=== PATIENT | female | born 1940 | race Caucasian/White ===

== ENCOUNTER → 2020-04-24 | Outpatient (CLI) | payer OTHER ==
[~2020-04-24] MED LIST: ACCUNEB SO1.25 MG/1 INH; ASTEPRO205.5 MCG/ NS; CALCIUM 600 +1 EAC1 PO; CENTRUM SILVER1 EAC4 PO; DEXILANT60 MG PO; FEMARA2.5 MG PO; FISH OIL 1,001000 M2 PO; LEVOTHYROXIN0.175 MG PO; NASONEX17 GM NASAL; PACERONE 200 M200 MG NG; PROBIOTIC1 EAC1 PO; REMERON15 MG PO; XARELTO20 MG PO
== END ==
LOC: NUC 08:01
PROVIDERS: ATTEND Neuromusculoskeletal Medicine & OMM
DX: M81.0 Age-related osteoporosis without current pathological fracture (principal)

== ENCOUNTER 2021-06-07 13:37 | Inpatient (IN) | payer OTHER ==
[~2021-06-07] VITALS: Ht 162.6 cm; Wt 73.9 kg
[~2021-06-07 13:37] MED LIST changes: -ACCUNEB SO1.25 MG/1 INH
[2021-06-07 14:08] VITALS: BP 98/40
[2021-06-07 15:32] LABS: EOSINOPHILS 1.5 % (0.0-3.0); RDW 17.4 % (10.5-14.5); WBC 4.9 thou/uL (4.0-11.0)
[2021-06-07 15:34] LABS: ABSOLUTE NEUTROPHILS 3.2 thou/uL (1.4-8.2); BASOPHILS 1.2 % (0.0-2.0); LYMPHOCYTES 16.8 % (24.0-44.0); MCH 22.5 pg (26.0-34.0); MCV 72.3 fL (80.0-100.0); MONOCYTES 14.3 % (1.0-8.0); PLATELET COUNT 371 thou/uL (150-400); POLYS 66.2 % (36.0-66.0); RBC 2.34 mil/uL (4.20-5.00)
[2021-06-07 15:47] LABS: HEMATOCRIT 16.9 % (37.0-47.0); HEMOGLOBIN 5.2 gm/dL (12.0-15.0)
[2021-06-07 15:48] LABS: ANION GAP 7 mmol/L (7-16); BUN 15 mg/dL (7-18); CALCIUM 8.1 mg/dL (8.5-10.1); CHLORIDE 102 mmol/L (98-107); CO2 27 mmol/L (21-32); GLUCOSE 106 mg/dL (74-106); SODIUM 136 mmol/L (136-145)
[2021-06-07 15:49] LABS: APTT 24.3 Seconds (24.5-32.8); PROTIME 10.9 Seconds (10.5-12.1)
[2021-06-07 15:53] LABS: ALBUMIN 3.1 g/dL (3.4-5.0); DIRECT BILIRUBIN < 0.1 mg/dL (<0.1-0.2); LIPASE 323 U/L (73-393); SGOT 16 U/L (15-37); SGPT 16 U/L (14-59); TOTAL BILIRUBIN 0.3 mg/dL (0.2-1.0); TOTAL PROTEIN 6.3 g/dL (6.4-8.2)
[2021-06-07 16:58] VITALS: BP 127/51; BP 127/55; BP 132/55; BP 140/73
[2021-06-07] MEDS ORDERED: SYNTHROID75 MC1 PO (17:22)
[2021-06-07] MEDS ORDERED: LIPITOR10 MG PO ×2 (17:22)
[2021-06-07] MEDS ORDERED: XARELTO20 MG PO (17:22)
[2021-06-07] MEDS ORDERED: KAPSPARGO SPRIN25 MG PO (17:23)
[2021-06-07] MEDS ORDERED: PROPAFENONE 22225 M1 PO (17:23)
[2021-06-07] MEDS ORDERED: ADULT ASPIRIN R81 MG PO (17:24)
[2021-06-07 17:50] LABS: % SATURATION 2 % (20-39); IRON 9 ug/dL (50-170); TIBC 429 ug/dL (250-450)
[2021-06-07 18:13] LABS: URINE BILIRUBIN NEGATIVE (Negative); URINE BLOOD NEGATIVE (Negative); URINE CLARITY CLEAR; URINE COLOR YELLOW; URINE GLUCOSE-RANDOM* NEGATIVE (Negative); URINE KETONES NEGATIVE (Negative); URINE LEUKOCYTES-REFLEX TRACE (Negative); URINE NITRITE-REFLEX NEGATIVE (Negative); URINE PROTEIN (DIPSTICK) NEGATIVE (Negative); URINE UROBILINOGEN 0.2 E.U./dl (0.2-1.0)
[2021-06-07 18:18] LABS: FOLIC ACID 18.5 ng/mL (8.6-58.9)
[2021-06-07 19:43] VITALS: BP 123/52; BP 132/55; BP 146/62; BP 150/59
[2021-06-07 20:25] VITALS: BP 133/50
[2021-06-07 21:38] VITALS: BP 150/59
[2021-06-07 22:40] VITALS: BP 145/70
--- NOTE | 2021-06-08 00:15 | NUR ---
PT IS A 80-YEAR-OLD FEMALE ADMITTED FROM HOME VIA ED WITH HGB OF 5.2/GI BLEED.PT IS A/OX4.VSS.PT ARRIVED TO UNIT VIA W/C ACCOMPANIED BY 2 ED STAFF.PROTONIX DRIP AND NS INFUSING AT TIME OF THE TRANSFER.PT RECIEVED 2 UNITS OF PRBCs AT THE ED PER THE STAFF.ORIENTED PT TO RM AND UNIT ACTIVITIES.PT STEADY ON HER FEET BUT DO C/O SOB W/EXERTION W/ACTIVITIES/AMBULATIONS THAT HAS BEEN GOING ON FOR DAYS.ADMISSION ASSESSMENT COMPLETED DOCUMENTED.PT DENIES ANY QUESTIONS OR CONCERNS.PT WILL BE NPO AFTER MIDNOC FOR EGD TOMORROW PER ED STAFF.
[2021-06-08 04:36] LABS: ABSOLUTE NEUTROPHILS 4.2 thou/uL (1.4-8.2); BASOPHILS 0.9 % (0.0-2.0); EOSINOPHILS 1.1 % (0.0-3.0); HEMATOCRIT 23.9 % (37.0-47.0); LYMPHOCYTES 15.8 % (24.0-44.0); MCHC 31.5 g/dL (28.0-37.0); PLATELET COUNT 312 thou/uL (150-400); POLYS 67.2 % (36.0-66.0); RBC 3.27 mil/uL (4.20-5.00); RDW 21.4 % (10.5-14.5); WBC 6.2 thou/uL (4.0-11.0)
[2021-06-08 04:38] LABS: HEMOGLOBIN 7.5 gm/dL (12.0-15.0)
[2021-06-08 04:45] VITALS: BP 148/66
[2021-06-08 04:53] LABS: CALCIUM 7.9 mg/dL (8.5-10.1); CREATININE 0.8 mg/dL (0.6-1.0); POTASSIUM 3.8 mmol/L (3.5-5.1)
[2021-06-08 07:44] VITALS: BP 136/58
--- NOTE | 2021-06-08 08:27 | NUR ---
P.T. EVALUATION TO BE PLACE ON HOLD AT THIS TIME DUE TO DECLINE IN MEDICAL STATUS WITH SUBSEQUENT INTUBATION AFTER P.T. ORDER WAS RECEIVED. REQUEST NEW P.T. ORDER ONCE PT IS HEMODYNAMICALLY STABLE AND ABLE TO PARTICPATE IN P.T. EVALUATION.
[2021-06-08 10:28] LABS: HEMATOCRIT 23.8 % (37.0-47.0); HEMOGLOBIN 7.3 gm/dL (12.0-15.0)
[2021-06-08 11:28] VITALS: BP 148/52
--- NOTE | 2021-06-08 12:44 | EKG ---
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
[2021-06-08 15:31] VITALS: BP 133/54
[2021-06-08 20:15] VITALS: BP 141/54
[2021-06-08 22:00] LABS: HEMATOCRIT 23.7 % (37.0-47.0); HEMOGLOBIN 7.3 gm/dL (12.0-15.0)
[2021-06-09 04:45] VITALS: BP 140/77
--- NOTE | 2021-06-09 08:18 | NUR ---
PT AMBULATING TO BATHROOM INDEPENDENTLY AND IS TOLERATING WELL. DENIES PAIN. RESTING COMFORTABLY. NO NEEDS VOICED. CALL LIGHT WITHIN REACH. FREQUENT OBSERVATION.
[2021-06-09 08:28] VITALS: BP 131/49
[2021-06-09 10:31] LABS: HEMATOCRIT 23.4 % (37.0-47.0); HEMOGLOBIN 7.2 gm/dL (12.0-15.0)
[2021-06-09 11:06] VITALS: BP 123/45
[2021-06-09 14:27] VITALS: BP 116/69; BP 124/51; BP 132/57
--- NOTE | 2021-06-09 19:42 | NUR ---
Pt was A&0X4, pleasant and cooperative throughout shift. VS were stable and pt remianed afebrile throughout shift. Pt Hgb was 7.2 - 1 unit PRBC was transfused. Pt tolerated transfusion which was completed at 1700. Pt is prepping for EGD and Colonoscopy 06/10/21. Pt was change from full liquid to clear liquid diet and will be NPO after midnight - communicated to shift supervisor. Pt is resting in bed. No concerns. Continue to monitor.
[2021-06-09 20:15] VITALS: BP 135/58
[2021-06-09 21:23] LABS: HEMATOCRIT 27.8 % (37.0-47.0); HEMOGLOBIN 8.8 gm/dL (12.0-15.0)
[2021-06-10 04:45] VITALS: BP 140/59
--- NOTE | 2021-06-10 05:48 | NUR ---
PATIENT CONTINUED TO BE IN A FIB WITH A RATE OF 125 TO 138 FOR OVER AN HOUR. CALLED THE NURSE PRACTIONER GAVE A ONE TIME ORDER THIS WAS GIVEN IVP. STRIPS IN CHART OF THIS EPISODE AND THE LAST STRIP TO SHOW RECOVERY AFTER THE IVP OF DELTAZEM WAS GIVEN. PATIENT CONTINUES TO SHOW IMPROVEMENT.
[2021-06-10 07:55] VITALS: BP 142/66
[2021-06-10 11:11] LABS: CALCIUM 7.8 mg/dL (8.5-10.1); CREATININE 0.7 mg/dL (0.6-1.0); POTASSIUM 3.4 mmol/L (3.5-5.1)
[2021-06-10 11:40] VITALS: BP 107/69
[2021-06-10 15:35] VITALS: BP 131/57
--- NOTE | 2021-06-10 17:18 | NUR ---
Pt was A&0x4, VS stable and afebrile throughout shift. Pt had a bout of tachycardia and AFib in the AM. Dr. Walsh said it was okay to proceed with EGD and colonoscopy. Pt returned to unit from procedure at 1600 and continues to be A&0x4 and stable. Pt converted back to SR and HR is now controled. Pt is sitting in chair eating dinner (regualr diet). No current concerns, will continue to monitor.
[2021-06-10 19:05] VITALS: BP 138/57
--- NOTE | 2021-06-11 01:12 | NUR ---
patients cares where assumed at [facility]. patient was assesssed and meds where passed. patient verbalized her gi exam was good and she is looking forward to going home. patient does believe she will go home today. rounds where done. the bed is in a low and locked position
[2021-06-11 06:02] VITALS: BP 151/69
--- NOTE | 2021-06-11 08:00 | EKG ---
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1940 Requested By: Polly Jo Order Number: [id number] MD: Krishna Hutson Measurements Intervals [place] Rate: 122 P: NC: QRS: 47 QRSD: 83 T: 167 QT: 301 QTc: 429 Interpretive Statements Atrial fibrillation Probable LVH with secondary repol abnrm Compared to ECG 06/07/2021 14:01:07 Sinus rhythm no longer present Electronically Signed On 06-11-2021 7:59:53 [employer] by Krishna Hutson [email or web address] <ELECTRONICALLY SIGNED> By: Krishna Hutson MD, [facility] 06/11/21 0759 0847 6 Krishna Hutson MD, FACC /EPI
[2021-06-11 08:05] VITALS: BP 149/65
[2021-06-11 09:40] LABS: HEMOGLOBIN 8.5 gm/dL (12.0-15.0)
--- NOTE | 2021-06-11 10:16 | NUR ---
THIS RN SPOKE WITH DR. ALEJANDRA FROM GI AT 1016 REGARDING DISCHARGE ORDERS FOR THIS PATIENT. HE SAID IT WAS OK TO DISCHARGE AND THAT THE PATIENT SHOULD NOT TAKE XARELTO FOR 5 DAYS.
[2021-06-11] MEDS ORDERED: ACCUNEB SO1.25 MG/1 INH (10:34)
[2021-06-11 10:35] VITALS: BP 149/65
[2021-06-11 10:40] VITALS: BP 149/65
--- NOTE | 2021-06-11 11:10 | 2DMMODE ---
[facility] [place] [address] 2 D/M-MODE ECHOCARDIOGRAM Name: LUCA KEENE Room #: 216-P ADM IN M.R.#: [id number] Admission: 06/07/21 Attend Phys: Polly Jo MD Discharge: Date of : 40 Report #: [id number] THIS REPORT FOR: cc: Sam Chinchilla,Rajiv Emanuel MD [facility] ~ APPROVED REPORT Study performed: 06/11/2021 09:32:31 EXAM: Comprehensive 2D, Doppler, and color-flow Echocardiogram Patient Location: Bedside Room #: 216 Status: routine BSA: 1.79 HR: 76 bpm BP: 149/65 mmHg Rhythm: NSR Other Information Study Quality: Good Indications Atrial Fibrillation Dyspnea Hypertension/HDD 2D Dimensions RVDd: 40.94 mm IVSd: 10.24 (7-11mm) LVOT Diam: 19.09 (18-24mm) LVDd: 42.17 mm PWd: 9.84 (7-11mm) Ascending Ao: 30.46 (22-36mm) LVDs: 30.30 (25-40mm) Left Atrium: 41.86 (27-40mm) Aortic Root: 29.19 mm IVC: 17.00 mm Volumes Left Atrial Volume (Systole) Single Plane 4CH: 85.08 mL Single Plane 2CH: 99.20 mL LA ESV Index: 57.00 mL/m2 Aortic Valve AoV Peak Ankit.: 1.58 m/s AO Peak Gr.: 9.95 mmHg LVOT Max P.01 mmHg [facility] [address] [place] [address] 2 D/M-MODE ECHOCARDIOGRAM Name: LUCA KEENE Room #: 216-P [facility] IN .R.#: [id number] Admission: 06/07/21 Attend Phys: Zacarias Marquez Discharge: Date of : 40 Report #: [id number] LVOT Max V: 1.32 m/s SHAYLA Vmax: 2.40 cm2 Mitral Valve E/A Ratio: 1.1 MV Decel. Time: 246.83 ms MV E Max Ankit.: 1.12 m/s MV A Ankit.: 1.02 m/s MV PHT: 71.58 ms IVRT: 106.11 ms Pulmonary Valve PV Peak Ankit.: 1.04 m/s PV Peak Gr.: 4.31 mmHg Pulmonary Vein P Vein S: 0.55 m/s P Vein A: 0.29 m/s P Vein D: 0.31 m/s P Vein A Dur.: 124.6 msec P Vein S/D Ratio: 1.77 Tricuspid Valve TR Peak Ankit.: 2.52 m/s TR Peak Gr.: 25.43 mmHg PA Pressure: 30.00 mmHg Left Ventricle The left ventricle is normal size. There is normal LV segmental wall motion. There is normal left ventricular wall thickness. The left ventricular systolic function is normal. The left ventricular ejection fraction is within the normal range. LVEF is 55-60%. The left ventricular diastolic function is normal. Right Ventricle The right ventricle is normal size. The right ventricular systolic function is normal. Atria Left atrium is dilated. Right atrium is dilated. Smal mobile structure in the right atrium likely chiari network. Aortic Valve The aortic valve is normal in structure. No aortic regurgitation is present. There is no aortic valvular stenosis. Mitral Valve The mitral valve is normal in structure. Mild mitral regurgitation. No evidence of mitral valve stenosis. [facility] [address] [place] [address] 2 D/M-MODE ECHOCARDIOGRAM Name: LUCA KEENE Room #: 216-P [facility] IN .R.#: [id number] Admission: 06/07/21 Attend Phys: Zacarias Marquez Discharge: Date of : 40 Report #: [id number] Tricuspid Valve The tricuspid valve is normal in structure. There is mild tricuspid regurgitation. Estimated PAP 30 mmHg. There is no pulmonary hypertension. Pulmonic Valve The pulmonary valve is normal in structure. There is no pulmonic valvular regurgitation. Great Vessels The aortic root is normal in size. IVC is normal in size and collapses >50% with inspiration. Pericardium There is no pericardial effusion. <Conclusion> Normal left ventricle size/wall thickness central ejection fraction 60% Normal right ventricle size/function Mild biatrial enlargement Aortic valve mildly calcified, no stenosis Normal mitral valve structure Mild mitral valve insufficiency Mild tricuspid valve insufficiency Pulmonary systolic pressure estimated at 30 mmHg No pericardial effusion Normal aortic root size <ELECTRONICALLY SIGNED> By: Rajiv Walsh MD, FACC 06/11/21 111 09 111 Rajiv Walsh MD, FACC /INF
--- NOTE | 2021-06-11 11:39 | NUR ---
talked with zia genao for cardiology at 0900. she said it was ok to discharge 216 from a cardiology standpoint.
[2021-06-11] MEDS ORDERED: PROTONIX40 M2 PO (12:09)
[2021-06-11] MEDS ORDERED: METOPROLOL SUCC50 MG PO (12:09)
[2021-06-11 12:49] VITALS: BP 149/65
--- NOTE | 2021-06-11 12:59 | NUR ---
TOOK OVER CARE OF THIS PATIENT AT 1200. PT AWAITING D/C ORDERS AT THIS TIME. GOING TO GO OVER DISCHARGE INSTRUCTIONS WITH PATIENT. PATIENT AGREEABLE TO DISCHARGE PLAN AND HAS OT QUESTIONS AT THIS TIME. SPOUSE PRESENT AT THE TIME OF DISCHARGE EDUCATION.
--- NOTE | 2021-06-12 09:08 | PATH ---
[facility] [address] [place] [address] PATHOLOGY RPT PROCEDURE Name: MARY BELTRAN Room #: 216-P DIS IN M.R.#: [id number] Admission: 06/07/21 Date of : 40 Discharge: 06/11/21 Report #: [id number] Path Case #: [id number] [facility] Accession Number: [id number] . 01 Material submitted: . colon - ASCENDING COLON POLYP. Modifiers: ascending . 01 Clinical history: . COLONOSCOPY . 02 Diagnosis: Ascending colon polyp, polypectomy: - Tubular adenoma. - Negative for high-grade dysplasia or malignancy. (ANK:tabatha; 06/11/2021) MBR 06/11/2021 1122 Local . 02 Electronically signed: . Hodan Patterson MD, Pathologist NPI- [id number] . 01 Gross description: . The specimen is received in formalin, labeled "Mary Beltran, ascending colon". The source is additionally listed on the requisition as "ascending colon polyp". Received are multiple segments of pale parker tissue ranging in size from 0.3-0.5 cm in maximum dimensions. The specimen is entirely submitted in cassette A1. ([facility]; 06/10/2021) NRI/NRI 06/10/2021 2155 Local . 02 Pathologist provided ICD-10: D12.2 . 02 CPT . 498968 Specimen Comment: A courtesy copy of this report has been sent to [phone] Specimen Comment: [phone], Specimen Comment: Report sent to , DR NOYOLA / DR ESCALERA Specimen Comment: A duplicate report has been generated due to demographic updates. Performed at: 01 [place] [id number] [id number] MD Jurgen Montero MD Phone: [phone] Performed at: [address] [address] PATHOLOGY RPT PROCEDURE Name: BELTRANMARY Room #: 216-P DIS IN M.R.#: [id number] Admission: 06/07/21 Date of : 40 Discharge: 06/11/21 Report #: [id number] Path Case #: [id number] [address] [place] [id number] MD Haley Steward MD Phone: [phone]
== END 2021-06-11 13:28 | disposition home or self-care (01) | DRG 378 ==
LOC: ER 13:37 → EROBS 16:30 → 2N 16:30
PROVIDERS: Nurse Practitioner; ADMIT Hospitalist; ATTEND Hospitalist
DX: K55.21 Angiodysplasia of colon with hemorrhage (principal); D62 Acute posthemorrhagic anemia; K57.31 Diverticulosis of large intestine without perforation or abscess with bleeding; Z20.822 Contact with and (suspected) exposure to COVID-19; J45.909 Unspecified asthma, uncomplicated; K21.9 Gastro-esophageal reflux disease without esophagitis; E89.0 Postprocedural hypothyroidism; Z96.651 Presence of right artificial knee joint; E78.5 Hyperlipidemia, unspecified; I10 Essential (primary) hypertension; E11.9 Type 2 diabetes mellitus without complications; K59.00 Constipation, unspecified; I48.0 Paroxysmal atrial fibrillation; G47.33 Obstructive sleep apnea (adult) (pediatric); K22.2 Esophageal obstruction; K44.9 Diaphragmatic hernia without obstruction or gangrene; K63.5 Polyp of colon; K64.8 Other hemorrhoids; Z79.01 Long term (current) use of anticoagulants; Z90.710 Acquired absence of both cervix and uterus; Z85.3 Personal history of malignant neoplasm of breast; Z86.010 Personal history of colon polyps; Z92.3 Personal history of irradiation; Z92.21 Personal history of antineoplastic chemotherapy; Z88.8 Allergy status to other drugs, medicaments and biological substances; Z86.718 Personal history of other venous thrombosis and embolism
CPT/HCPCS: 10081; 62110; 62900; 70005